=== PATIENT | female | born 1970 | race Caucasian/White ===

== ENCOUNTER 2022-06-04 14:33 | Emergency (ER) | payer BC ==
[2022-06-04 14:53] VITALS: BP 166/99; PULSE 76
[2022-06-04] MEDS: Diazepam 10 MG Tab PO ONE (15:16)
[2022-06-04] MEDS: Ketorolac 60 MG/2 ML SDV IM ONE (15:16)
[2022-06-04] MEDS ORDERED: Diazepam 5 MG Tab ONE (15:22)
[2022-06-04] MEDS ORDERED: Ketorolac 60 MG/2 ML SDV ONE (15:23)
== END 2022-06-04 15:35 | disposition home or self-care (01) ==
LOC: LB.ED 14:33
DX: S70.11XA Contusion of right thigh, initial encounter (principal); Z79.899 Other long term (current) drug therapy; W01.0XXA Fall on same level from slipping, tripping and stumbling without subsequent striking against object, initial encounter
CPT/HCPCS: 96372; 99282; 99283; A9270-GY; J1885